=== PATIENT | female | born 1965 | race Two or more races ===

== ENCOUNTER 2017-03-20 20:57 | Emergency (ER) | payer OTHER ==
[~2017-03-20] VITALS: Ht 160 cm; Wt 91.9 kg
[2017-03-20 21:10] VITALS: BP 172/115
[2017-03-20] MEDS ORDERED: LIDOCAINE 1%, 20ML SQ ONE (21:30)
[2017-03-20] MEDS ORDERED: DIPH,PERTUSS(ACELL),TET VAC/PF 0.5 ML IM-VACC ONE ×2 (21:30→22:50)
[2017-03-20] MEDS ORDERED: potassium PO (21:42)
[2017-03-20] MEDS ORDERED: ASPI-496 PO (21:42)
[2017-03-20] MEDS ORDERED: LISI-167 PO (21:42)
[2017-03-20] MEDS ORDERED: LEVO75TA5 PO (21:42)
== END 2017-03-20 23:03 | disposition home or self-care (01) ==
LOC: ED 22:41
DX: S01.511A Laceration without foreign body of lip, initial encounter (principal); I10 Essential (primary) hypertension; E03.9 Hypothyroidism, unspecified; X58.XXXA Exposure to other specified factors, initial encounter; Y93.89 Activity, other specified; Y92.89 Other specified places as the place of occurrence of the external cause; Y99.8 Other external cause status
CPT/HCPCS: 40650; 90471; 90715

== ENCOUNTER 2017-03-25 10:30 | Emergency (ER) | payer OTHER ==
[~2017-03-25] VITALS: Ht 160 cm; Wt 95.0 kg
[~2017-03-25 10:30] MED LIST: ASPI-496 PO; LEVO75TA5 PO; LISI-167 PO; potassium PO
[2017-03-25 10:36] VITALS: BP 132/86
== END 2017-03-25 11:38 | disposition home or self-care (01) ==
LOC: ED 11:36
DX: S01.511D Laceration without foreign body of lip, subsequent encounter (principal); I10 Essential (primary) hypertension; E03.9 Hypothyroidism, unspecified; Z90.710 Acquired absence of both cervix and uterus; W22.8XXD Striking against or struck by other objects, subsequent encounter; Y92.89 Other specified places as the place of occurrence of the external cause; Y99.9 Unspecified external cause status
CPT/HCPCS: 99282